=== PATIENT | male | born 1965 | race Caucasian/White ===

== ENCOUNTER → 2023-08-12 | Outpatient (CLI) | payer OTHER ==
--- NOTE | 2023-08-12 15:56 | US ---
EXAMINATION TYPE: US carotid duplex BILAT DATE OF EXAM: 08/12/2023 COMPARISON: NONE CLINICAL INDICATION: Male, 57 years old with history of R42 DIZZINESS AND GIDDINESS; Dizziness TECHNIQUE: Carotid duplex ultrasound examination. Indirect Doppler criteria was utilized. FINDINGS: EXAM MEASUREMENTS: RIGHT: Peak Systolic Velocity (PSV) cm/sec ----- Right CCA: 136.0 ----- Right ICA: 141.1 ----- Right ECA: 216.3 ICA/CCA ratio: 1.0 RIGHT: End Diastole cm/sec ----- Right CCA: 44.5 ----- Right ICA: 36.7 ----- Right ECA: 37.9 LEFT: Peak Systolic Velocity (PSV) cm/sec ----- Left CCA: 122.9 ----- Left ICA: 130.2 ----- Left ECA: 148.0 ICA/CCA ratio: 1.1 LEFT: End Diastole cm/sec ----- Left CCA: 40.1 ----- Left ICA: 41.3 ----- Left ECA: 29.9 VERTEBRALS (direction of flow): Right Vertebral: Antegrade Left Vertebral: ?occluded Rhythm: Normal FILM AND VIDEO EDITOR NOTES: Elevated velocities throughout entire bilateral carotid systems. Possible left les tebral occlusion IMPRESSION: 1. Elevated velocities throughout the bilateral carotid systems but with normal ICA/CCA ratios. Findi ngs may be due to hypertension/hyperdynamic state. Clinically correlate. 2. Unable to identify flow in the left vertebral artery. Left vertebral artery occlusion not exclud ed. Criteria for Assigning % of Stenosis / Diameter reduction (Estimation based on the indirect measurements of the internal carotid artery velocities (ICA PSV). 1. Normal (no stenosis)=ICA PSV < 125 cm/s: ratio < 2.0: ICA EDV<40 cm/s. 2. Less than 50% stenosis=ICA PSV < 125 cm/s: ratio < 2.0: ICA EDV<40 cm/s. 3. 50 to 69% stenosis=ICA PSV of 125 to 230 cm/s: ration 2.0 ? 4.0: ICA EDV 40-100 cm/s. 4. Greater than 70% stenosis to near occlusion= ICA PSV > 230 cm/s: ratio > 4.0: ICA EDV > 100 cm/s. 5. Near occlusion= ICA PSV velocities may be low or undetectable: variable ratio and ICA EDV. 6. Total occlusion=unable to detect flow.
== END | disposition home or self-care (01) ==
LOC: RADUSWWP 15:14
PROVIDERS: ATTEND Family Medicine
DX: R42 Dizziness and giddiness (principal)
CPT/HCPCS: 93880